=== PATIENT | female | born 1980 | race Caucasian/White ===

== ENCOUNTER 2017-04-29 13:35 | Inpatient (IN) | payer OTHER ==
[~2017-04-29] VITALS: Ht 162.6 cm; Wt 64.7 kg
[2017-04-29 14:11] VITALS: BP 121/80; PULSE 81; RESP 18; TEMP 98.5; O2SAT 100
[2017-04-29] MEDS ORDERED: SENNOSIDES 8.6 MG TAB PO PRN (15:30)
[2017-04-29] MEDS ORDERED: LACTULOSE SYRUP 20 GM/30 ML CUP PO PRN (15:30)
[2017-04-29] MEDS ORDERED: ACETAMINOPHEN 325 MG TAB PO PRN (15:30)
[2017-04-29] MEDS ORDERED: SODIUM CHLORIDE 0.9% FLUSH 10 ML FLUSH IV FLUSH PRN (15:30)
[2017-04-29] MEDS ORDERED: MAGNESIUM HYDROXIDE SUSP 30 ML CUP PO PRN (15:30)
[2017-04-29] MEDS ORDERED: NALOXONE HCL 0.4 MG/ML AMP IV PUSH PRN (15:30)
[2017-04-29] MEDS ORDERED: ONDANSETRON HCL 4 MG/2 ML VIAL IVP PRN (15:30)
[2017-04-29] MEDS ORDERED: BISACODYL 10 MG SUPP RECTAL PRN (15:30)
[2017-04-29] MEDS ORDERED: CLINDAMYCIN INJ 900 MG in SODIUM CHLORIDE 0.9% INJ 100 ML IV SCH ×3 (15:45→17:00)
[2017-04-29 16:00] VITALS: BP 117/76; PULSE 88; RESP 18; TEMP 98.5; O2SAT 100
--- NOTE | 2017-04-29 16:05 | RADRPT ---
EXAM DATE/TIME: 04/29/2017 15:45 [facility] COMPARISON: No previous studies available for comparison. INDICATIONS : Right leg cellulitis. MEDICAL HISTORY : Cellulitis. Substance use. SURGICAL HISTORY : Cholecystectomy. Breast augmentation. ENCOUNTER: Initial ACUITY: 1 day PAIN SCORE: 4/10 LOCATION: Right leg. TECHNIQUE: Venous ultrasound of the leg was performed from the inguinal ligament to the proximal calf. Real-gómez e, color Doppler and spectral tracing, compression and augmentation techniques were used. FINDINGS: There is normal compressibility of the deep venous system from the inguinal region to the proximal ca lf. No echogenic clot is seen in the lumen of the common femoral, femoral, popliteal, and posterior tibial veins. There is a normal response of the venous system to proximal and distal augmentation an d respiration. CONCLUSION: 1. No sonographic evidence for right lower extremity DVT. Gómez Jaramillo MD on April 29, 2017 at 16:03 Board Certified Radiologist. This report was verified electronically.
[2017-04-29] MEDS: ACETAMINOPHEN/HYDROcodone 325 MG/5 MG TAB PO PRN ×2 (16:07→20:39)
[2017-04-29] MEDS: ENOXAPARIN SODIUM 40 MG/0.4 ML SYRINGE SQ SCH (16:18)
[2017-04-29] MEDS: SODIUM CHLOR 0.9% 1000 ML INJ 1,000 ML IV SCH (16:21)
[2017-04-29] MEDS: CLINDAMYCIN INJ 900 MG in SODIUM CHLORIDE 0.9% INJ 100 ML IV SCH (17:38)
[2017-04-29] MEDS ORDERED: POTASSIUM CHLORIDE 10 MEQ CONTROLLED RELEASE TAB PO ONE (17:45)
--- NOTE | 2017-04-29 17:47 | HHI.HP ---
HPI Service [facility] Hospitalists Primary Care Physician No Primary Care Physician Admission Diagnosis Diagnoses: (1) Cellulitis of right lower extremity Diagnosis: Principal (2) Leukocytosis Diagnosis: Principal (3) Hypokalemia Diagnosis: Principal (4) Elevated serum hCG Diagnosis: Principal Chief Complaint: redness, swelling, pain R leg Travel History International Travel<30 Days: No Contact w/Intl Traveler <30 Da: No History of Present Illness Written by Debby Cedeño PA-C acting as scribe for Dr. Mohr on 04/29/17 at 1720. 36-year-old female with no significant medical history presents with complaint of pain, swelling, redness in her right lower extremity. She was initially evaluated at the [facility] ED and admitted to [facility]. The patient states 3 days ago she awoke with soreness over the lateral aspect of her right leg. She thought she had pulled a muscle as she had done a lot of yard work and moving furniture. She states the symptoms then started moving over her right ankle and then into her toes. She denies any injury. States it feels like a "pressure" and states when she sits up she can feel it down her leg. She cannot put pressure on it because of the pain. She admits to intermittent low-grade fevers. She has also had a mild headache intermittently. She vomited a couple of times, yesterday at 4am and felt nauseous again this afternoon. Denies any numbness or tingling. Review of Systems Except as stated in HPI: all other systems reviewed are Neg Past Family Social History Past Medical History No significant medical problems Two vaginal births Past Surgical History Breast augmentation Cholecystectomy Reported Medications Reported Meds & Active Scripts Active No Active Prescriptions or Reported Medications Allergies: Coded Allergies: meperidine (Verified Allergy, Unknown, 04/29/17) Family History Mother and father are healthy. Maternal grandparents with cancer. Social History Occasional cigarette smoking. Denies illicit drug use. Denies heavy alcohol use. Physical Exam Vital Signs Vital Signs Date Time Temp Pulse Resp B/P (MAP) Pulse Ox O2 Delivery O2 Flow Rate FiO2 04/29/17 16:00 98.5 88 18 117/76 (90) 100 04/29/17 14:11 98.5 81 18 121/80 (94) 100 Physical Exam GENERAL: This is a well-nourished, well-developed patient, in no apparent distress. SKIN: Warm light erythema starting over the proximal tibia extending distally over the right lower leg and foot. No obvious wounds. HEAD: Atraumatic. Normocephalic. EYES: No scleral icterus. No injection or drainage. NECK: Trachea midline. CARDIOVASCULAR: Regular rate and rhythm without murmurs, gallops, or rubs. RESPIRATORY: Clear to auscultation. Breath sounds equal bilaterally. No wheezes , rales, or rhonchi. GASTROINTESTINAL: Abdomen soft, non-tender, nondistended. No guarding. MUSCULOSKELETAL: Swelling of the right lower leg and foot. NEUROLOGICAL: Awake and alert. Normal speech. PSYCHIATRIC: Normal mood and affect. Caprini VTE Risk Assessment Caprini VTE Risk Assessment: No/Low Risk (score <= 1) VTE [facility] Contraindication: Severe LE edema (cellulitis RLE) Caprini Risk Assessment Model Point Value = 1 Point Value = 2 Point Value = 3 Point Value = 5 Age 41-60 Minor surgery BMI > 25 kg/m2 Swollen legs Varicose veins or History of unexplained or recurrent spontaneous Oral contraceptives or hormone replacement Sepsis (< 1 month) Serious lung disease, including pneumonia (< 1 month) Abnormal pulmonary function Acute myocardial infarction Congestive heart failure (< 1 month) History of inflammatory bowel disease Medical patient at bed rest Age 61-74 Arthroscopic surgery Major open surgery (> 45 min) Laparoscopic surgery (> 45 min) Malignancy Confined to bed (> 72 hours) Immobilizing plaster cast Central venous access Age >= 75 History of VTE Family history of VTE Factor V Leiden Prothrombin [id number] Lupus anticoagulant Anticardiolipin antibodies Elevated serum homocysteine Heparin-induced thrombocytopenia Other congenital or acquired thrombophilia Stroke (< 1 month) Elective arthroplasty Hip, pelvis, or leg fracture Acute spinal cord injury (< 1 month) Prophylaxis Regimen Total Risk Factor Score Risk Level Prophylaxis Regimen 0-1 Low Early ambulation 2 Moderate Order ONE of the following: *Sequential Compression Device (SCD) *Heparin 5000 units SQ BID 3-4 Higher Order ONE of the following medications: *Heparin 5000 units SQ TID *Enoxaparin/Lovenox 40 mg SQ daily (WT < 150 kg, CrCl > 30 mL/min) *Enoxaparin/Lovenox 30 mg SQ daily (WT < 150 kg, CrCl > 10-29 mL/min) *Enoxaparin/Lovenox 30 mg SQ BID (WT < 150 kg, CrCl > 30 mL/min) AND/OR *Sequential Compression Device (SCD) 5 or more Highest Order ONE of the following medications: *Heparin 5000 units SQ TID (Preferred with Epidurals) *Enoxaparin/Lovenox 40 mg SQ daily (WT < 150 kg, CrCl > 30 mL/min) *Enoxaparin/Lovenox 30 mg SQ daily (WT < 150 kg, CrCl > 10-29 mL/min) *Enoxaparin/Lovenox 30 mg SQ BID (WT < 150 kg, CrCl > 30 mL/min) AND *Sequential Compression Device (SCD) Assessment and Plan Assessment and Plan 36-year-old female with: Cellulitis right lower extremity: Leukocytosis of 19.3. Doppler ultrasound negative for DVT. -Clindamycin IV -Oxycodone for pain -Repeat am CBC Hypokalemia: Mild 3.3 -Replete and monitor Elevated Beta-HCG: HCG 35. Patient states she last had sexual intercourse 3 weeks ago, but just had her normal 5 day period. -Repeat level in the am to confirm DVT prophylaxis: Lovenox. Avoid SCD on RLE. This note was transcribed by lon. I, Dr. Shell Mohr personally performed the history, physical exam, and medical decision making; and confirmed the accuracy of the information in the transcribed note. Authenticated by Dr. Shell Mohr on 04/29/17 at 17:48. Discussed Condition With ED physician, patient. Debby Cedeño Apr 29, 2017 17:47 Shell Mohr MD Apr 29, 2017 17:48
[2017-04-29 20:00] VITALS: BP 104/72; PULSE 83; RESP 20; TEMP 99.3; O2SAT 100
[2017-04-29] MEDS: DOCUSATE SODIUM 50 MG/SENNA 8.6 MG TAB PO SCH (20:39)
[2017-04-29] MEDS: SODIUM CHLORIDE 0.9% FLUSH 10 ML FLUSH IV FLUSH SCH (20:39)
[2017-04-30] VITALS: BP 101/69; PULSE 86; RESP 20; TEMP 100.8; O2SAT 100
[2017-04-30] MEDS: CLINDAMYCIN INJ 900 MG in SODIUM CHLORIDE 0.9% INJ 100 ML IV SCH ×3 (01:24→17:14)
[2017-04-30] MEDS: SODIUM CHLOR 0.9% 1000 ML INJ 1,000 ML IV SCH ×2 (01:24→14:47)
[2017-04-30] MEDS: ACETAMINOPHEN/HYDROcodone 325 MG/5 MG TAB PO PRN (03:14)
[2017-04-30 08:00] VITALS: BP 115/75; PULSE 90; RESP 20; TEMP 99.3; O2SAT 99
[2017-04-30] MEDS: DOCUSATE SODIUM 50 MG/SENNA 8.6 MG TAB PO SCH ×2 (08:31→20:33)
[2017-04-30] MEDS: SODIUM CHLORIDE 0.9% FLUSH 10 ML FLUSH IV FLUSH SCH ×2 (08:31→20:31)
[2017-04-30 09:19] LABS: AUTOMATED NEUTROPHIL # 8.5 TH/MM3 (1.8-7.7); BASOPHIL # 0.1 TH/MM3 (0-0.2); BASOPHIL % 0.6 % (0.0-2.0); EOSINOPHIL # 0.2 TH/MM3 (0-0.4); LYMPH % 9.5 % (9.0-44.0); MEAN CELL VOLUME 89.3 FL (80.0-100.0); MEAN CORPUSCULAR HGB CONC 33.6 % (32.0-36.0); MONO % 6.2 % (0.0-8.0); NEUT % 81.7 % (16.0-70.0); PLATELET COUNT 201 TH/MM3 (150-450); RED BLOOD COUNT 3.25 MIL/MM3 (4.00-5.30); WHITE BLOOD COUNT 10.4 TH/MM3 (4.0-11.0)
[2017-04-30 09:22] LABS: HEMO FLAGS DIFF FINAL
[2017-04-30 09:57] LABS: BICARBONATE 22.1 MEQ/L (21.0-32.0)
[2017-04-30 10:02] LABS: POTASSIUM 3.5 MEQ/L (3.5-5.1)
--- NOTE | 2017-04-30 10:03 | HHI.PR ---
Subjective Remarks Pain swelling and redness of the right lower extremity are not improved. Afebrile. Objective Vitals Vital Signs Date Time Temp Pulse Resp B/P (MAP) Pulse Ox O2 Delivery O2 Flow Rate FiO2 04/30/17 00:00 100.8 86 20 101/69 (80) 100 04/29/17 20:00 99.3 83 20 104/72 (83) 100 04/29/17 16:00 98.5 88 18 117/76 (90) 100 04/29/17 14:11 98.5 81 18 121/80 (94) 100 I/O 04/29/17 04/29/17 04/29/17 04/30/17 04/30/17 04/30/17 07:00 15:00 23:00 07:00 15:00 23:00 Intake Total 569.3 ml 970 ml Output Total 350 ml 280 ml Balance 219.3 ml 690 ml Intake Oral 400 ml 320 ml IV Total 169.3 ml 650 ml Output Urine Total 350 ml 280 ml # Voids 2 # Bowel Movements 1 0 Result Diagram: 04/30/17 0910 04/30/17 0910 Objective Remarks GENERAL: Well-nourished, well-developed female patient. SKIN: Warm and dry. HEAD: Normocephalic. EYES: No scleral icterus. No injection or drainage. NECK: Supple, trachea midline. No JVD or lymphadenopathy. CARDIOVASCULAR: Regular rate and rhythm without murmurs, gallops, or rubs. RESPIRATORY: Breath sounds equal bilaterally. No accessory muscle use. GASTROINTESTINAL: Abdomen soft, non-tender, nondistended. EXTREMITIES: Right lower extremity has patchy erythema and is warm to touch and is edematous 1+, area of dull erythema over her lateral right foot and malleolus. NEUROLOGICAL: Awake, alert, and oriented x 3. Non-focal. A/P Problem List: (1) Cellulitis of right lower extremity ICD Code: L03.115 - Cellulitis of right lower limb (2) Leukocytosis ICD Code: D72.829 - Elevated white blood cell count, unspecified (3) Hypokalemia ICD Code: E87.6 - Hypokalemia (4) Elevated serum hCG ICD Code: E34.9 - Endocrine disorder, unspecified Assessment and Plan -Right lower extremity cellulitis, not improved. Will admit. Continue clindamycin IV, add cefazolin. Unable to use vancomycin due to possible . Hep-Lock IV. -Elevated beta-hCG, repeat pending this morning. Patient informed of possible . Avoid toxins. -Right lower extremity pain due to cellulitis. Treat with Lortab and oxycodone as needed. -Anemia, likely iron deficient. Check iron profile and will start ferrous sulfate if indicated. -DVT prophylaxis with Lovenox subcutaneous. Shell Mohr MD Apr 30, 2017 10:03
[2017-04-30] MEDS: ceFAZolin 2 GM PREMIX 50 ML IV SCH ×2 (11:04→18:09)
[2017-04-30 12:00] VITALS: BP 104/74; PULSE 87; RESP 20; TEMP 99.5; O2SAT 98
[2017-04-30 13:36] LABS: TRANSFERRIN IRON PROFILE 177 MG/DL (200-360)
[2017-04-30] MEDS ORDERED: AMBI10TA PO (14:49)
[2017-04-30 16:00] VITALS: BP 109/69; PULSE 86; RESP 20; TEMP 99.6; O2SAT 100
[2017-04-30] MEDS: ENOXAPARIN SODIUM 40 MG/0.4 ML SYRINGE SQ SCH (17:14)
[2017-04-30 20:00] VITALS: BP 118/80; PULSE 88; RESP 20; TEMP 97.8; O2SAT 100
[2017-04-30] MEDS: FERROUS SULFATE 325 MG (65 MG ELEMENTAL IRON) TAB PO SCH (20:33)
[2017-05-01] VITALS: BP 121/85; PULSE 82; RESP 20; TEMP 99.7; O2SAT 100
[2017-05-01] MEDS: CLINDAMYCIN INJ 900 MG in SODIUM CHLORIDE 0.9% INJ 100 ML IV SCH ×3 (01:00→17:59)
[2017-05-01] MEDS: ceFAZolin 2 GM PREMIX 50 ML IV SCH ×3 (01:30→18:56)
[2017-05-01] MEDS: SODIUM CHLOR 0.9% 1000 ML INJ 1,000 ML IV SCH ×3 (07:26→17:26)
[2017-05-01 08:00] VITALS: BP 124/85; PULSE 93; RESP 18; TEMP 97.7; O2SAT 100
[2017-05-01] MEDS: DOCUSATE SODIUM 50 MG/SENNA 8.6 MG TAB PO SCH ×2 (09:19→20:31)
[2017-05-01] MEDS: FERROUS SULFATE 325 MG (65 MG ELEMENTAL IRON) TAB PO SCH ×2 (09:19→20:31)
[2017-05-01] MEDS: SODIUM CHLORIDE 0.9% FLUSH 10 ML FLUSH IV FLUSH SCH ×2 (09:20→20:31)
[2017-05-01 10:45] LABS: BETA HCG QUANT 37 MIU/ML (0-5)
[2017-05-01 12:00] VITALS: BP 109/75; PULSE 79; RESP 18; TEMP 98.5; O2SAT 99
--- NOTE | 2017-05-01 13:07 | HHI.PR ---
Subjective Remarks Patient states the right lower extremity feels slightly less painful and swollen. Denies fever or chills. Objective Vitals Vital Signs Date Time Temp Pulse Resp B/P (MAP) Pulse Ox O2 Delivery O2 Flow Rate FiO2 05/01/17 12:00 98.5 79 18 109/75 (86) 99 05/01/17 08:00 97.7 93 18 124/85 (98) 100 05/01/17 00:00 99.7 82 20 121/85 (97) 100 04/30/17 20:00 97.8 88 20 118/80 (93) 100 04/30/17 18:14 18 04/30/17 16:00 99.6 86 20 109/69 (82) 100 I/O 04/30/17 04/30/17 04/30/17 05/01/17 05/01/17 05/01/17 06:59 14:59 22:59 06:59 14:59 22:59 Intake Total 970 ml 1156 ml 996 ml 106 ml Output Total 280 ml Balance 690 ml 1156 ml 996 ml 106 ml Intake Oral 320 ml 240 ml IV Total 650 ml 1156 ml 756 ml 106 ml Output Urine Total 280 ml # Bowel Movements 0 Result Diagram: 04/30/17 0910 04/30/17 0910 Objective Remarks GENERAL: Well-nourished, well-developed female patient. SKIN: Warm and dry. HEAD: Normocephalic. EYES: No scleral icterus. No injection or drainage. NECK: Supple, trachea midline. No JVD or lymphadenopathy. CARDIOVASCULAR: Regular rate and rhythm without murmurs, gallops, or rubs. RESPIRATORY: Breath sounds equal bilaterally. No accessory muscle use. GASTROINTESTINAL: Abdomen soft, non-tender, nondistended. EXTREMITIES: Right lower extremity has patchy erythema and is warm to touch and is edematous 1+, area of dull erythema over her lateral right foot and malleolus , edema has slightly receded, edema slightly improved. NEUROLOGICAL: Awake, alert, and oriented x 3. Non-focal. A/P Problem List: (1) Cellulitis of right lower extremity ICD Code: L03.115 - Cellulitis of right lower limb (2) Leukocytosis ICD Code: D72.829 - Elevated white blood cell count, unspecified (3) Hypokalemia ICD Code: E87.6 - Hypokalemia (4) Elevated serum hCG ICD Code: E34.9 - Endocrine disorder, unspecified Assessment and Plan -Right lower extremity cellulitis, slow improvement. Continue clindamycin IV, Cefizox. -Elevated beta-hCG, trend is 35->33->37 - last menstrual period one week ago which was on time per the patient. Will check transvaginal ultrasound to rule out retained products of conception. -Right lower extremity pain due to cellulitis. Treat with Lortab and oxycodone as needed. -Anemia, iron deficient. Continue ferrous sulfate. -DVT prophylaxis with Lovenox subcutaneous. Discharge Planning Discharge home with by mouth antibiotics once cellulitis improved. Shell Mohr MD May 01, 2017 13:06
[2017-05-01] MEDS: ENOXAPARIN SODIUM 40 MG/0.4 ML SYRINGE SQ SCH (15:26)
--- NOTE | 2017-05-01 15:47 | RADRPT ---
EXAM DATE/TIME: 05/01/2017 14:44 [facility] COMPARISON: No previous studies available for comparison. INDICATIONS : . LAB(S): Beta-hC MEDICAL HISTORY : . Cellulitis. Substance use. SURGICAL HISTORY : Cholecystectomy. Breast augmentation. ENCOUNTER: Initial ACUITY: 3 days PAIN SCORE: 8/10 LOCATION: Bilateral pelvis MEASUREMENTS: UTERUS: 7.2 x 4.6 x 4.0 cm ENDOMETRIAL STRIPE: 2 mm RIGHT OVARY: 2.9 x 1.9 x 2.0 cm LEFT OVARY: 1.9 x 1.7 x 1.7 cm FREE FLUID: Yes cul-de-sac FINDINGS: UTERUS: The myometrium has homogeneous echotexture without mass. RIGHT OVARY: Ovary contains no mass or significant cystic lesion. LEFT OVARY: Ovary contains no mass or significant cystic lesion. MISCELLANEOUS: Small amount of free fluid. CONCLUSION: 1. Multiple normal appearing ovarian follicles. 2. Small amount of pelvic free fluid. 3. No intrauterine seen. Thanh Kaur MD on May 01, 2017 at 15:45 Board Certified Radiologist. This report was verified electronically.
[2017-05-01 16:03] VITALS: BP 135/81; PULSE 74; RESP 18; TEMP 98.7; O2SAT 100
[2017-05-01 20:00] VITALS: BP 118/80; PULSE 80; RESP 20; TEMP 98.7; O2SAT 100
[2017-05-01] MEDS ORDERED: ZOLPIDEM TARTRATE 5 MG TAB PO ONE (21:30)
[2017-05-02] VITALS: BP 118/82; PULSE 82; RESP 20; TEMP 98.5; O2SAT 99
[2017-05-02] MEDS: CLINDAMYCIN INJ 900 MG in SODIUM CHLORIDE 0.9% INJ 100 ML IV SCH ×3 (01:00→16:30)
[2017-05-02] MEDS: SODIUM CHLOR 0.9% 1000 ML INJ 1,000 ML IV SCH (01:09)
[2017-05-02] MEDS: ceFAZolin 2 GM PREMIX 50 ML IV SCH ×3 (02:10→18:32)
[2017-05-02 08:00] VITALS: BP 113/85; PULSE 67; RESP 20; TEMP 97.1; O2SAT 100
[2017-05-02] MEDS: SODIUM CHLORIDE 0.9% FLUSH 10 ML FLUSH IV FLUSH SCH ×2 (08:13→20:45)
[2017-05-02] MEDS: FERROUS SULFATE 325 MG (65 MG ELEMENTAL IRON) TAB PO SCH ×2 (08:15→20:45)
[2017-05-02] MEDS: DOCUSATE SODIUM 50 MG/SENNA 8.6 MG TAB PO SCH ×2 (08:15→20:45)
--- NOTE | 2017-05-02 09:32 | HHI.PR ---
Subjective Remarks Patient states that she feels her leg is improving however she still has pain in the ankle. Objective Vitals Vital Signs Date Time Temp Pulse Resp B/P (MAP) Pulse Ox O2 Delivery O2 Flow Rate FiO2 05/02/17 08:00 97.1 67 20 113/85 (94) 100 05/02/17 00:00 98.5 82 20 118/82 (94) 99 05/01/17 20:00 98.7 80 20 118/80 (93) 100 05/01/17 16:03 98.7 74 18 135/81 (99) 100 05/01/17 12:00 98.5 79 18 109/75 (86) 99 I/O 05/01/17 05/01/17 05/01/17 05/02/17 05/02/17 05/02/17 07:00 15:00 23:00 07:00 15:00 23:00 Intake Total 156 ml 660 ml 160 ml 515 ml Balance 156 ml 660 ml 160 ml 515 ml Intake Oral 160 ml IV Total 156 ml 660 ml 515 ml # Voids 6 # Bowel Movements 0 Result Diagram: 04/30/17 0910 04/30/17 0910 Objective Remarks GENERAL: Well-nourished, well-developed female patient. SKIN: Warm and dry. HEAD: Normocephalic. EYES: No scleral icterus. No injection or drainage. NECK: Supple, trachea midline. No JVD or lymphadenopathy. CARDIOVASCULAR: Regular rate and rhythm without murmurs, gallops, or rubs. RESPIRATORY: Breath sounds equal bilaterally. No accessory muscle use. GASTROINTESTINAL: Abdomen soft, non-tender, nondistended. EXTREMITIES: Right lower extremity with trace to 1+ edema, erythema has receded and is now concentrated around the lateral ankle as well as the lateral mid calf. The lateral mid calf area of erythema is about 4 cm and indurated with no fluctuance. Patient has normal range of motion in the knee and right ankle. NEUROLOGICAL: Awake, alert, and oriented x 3. Non-focal. A/P Problem List: (1) Cellulitis of right lower extremity ICD Code: L03.115 - Cellulitis of right lower limb (2) Leukocytosis ICD Code: D72.829 - Elevated white blood cell count, unspecified (3) Hypokalemia ICD Code: E87.6 - Hypokalemia (4) Elevated serum hCG ICD Code: E34.9 - Endocrine disorder, unspecified Assessment and Plan -Right lower extremity cellulitis, slow improvement. Continue clindamycin IV, cefazolin, add vancomycin IV. Area of induration right lateral leg - monitor for possible development of abscess. -Elevated beta-hCG, trend is 35->33->37 - TVUS negative for . -Right lower extremity pain due to cellulitis. Treat with Lortab and oxycodone as needed. -Anemia, iron deficient. Continue ferrous sulfate. -DVT prophylaxis with Lovenox subcutaneous. Discharge Planning Discharge home with by mouth antibiotics once cellulitis improved. Shell Mohr MD May 02, 2017 09:32
[2017-05-02] MEDS: VANCOMYCIN INJ 1,000 MG in SODIUM CHLOR 0.9% 250 ML INJ 250 ML IV SCH ×2 (10:37→21:57)
[2017-05-02] MEDS ORDERED: Vancomycin Consult Pharmacy 1 EA OTHER SCH (11:00)
[2017-05-02 11:35] VITALS: BP 123/80; PULSE 97; RESP 20; TEMP 98.3; O2SAT 100
[2017-05-02] MEDS: ENOXAPARIN SODIUM 40 MG/0.4 ML SYRINGE SQ SCH (15:06)
[2017-05-02 16:00] VITALS: BP 138/95; PULSE 74; RESP 18; TEMP 97.7; O2SAT 100
[2017-05-02 20:24] VITALS: BP 108/75; PULSE 79; RESP 18; TEMP 98.3; O2SAT 100
[2017-05-02] MEDS ORDERED: ZOLPIDEM TARTRATE 5 MG TAB PO ONE (21:30)
[2017-05-03 00:01] VITALS: BP 121/79; PULSE 69; RESP 16; TEMP 98; O2SAT 99
[2017-05-03] MEDS: CLINDAMYCIN INJ 900 MG in SODIUM CHLORIDE 0.9% INJ 100 ML IV SCH ×2 (00:42→09:14)
[2017-05-03] MEDS: ceFAZolin 2 GM PREMIX 50 ML IV SCH ×3 (01:19→17:48)
[2017-05-03 08:00] VITALS: BP 121/77; PULSE 73; RESP 18; TEMP 98.5; O2SAT 100
[2017-05-03] MEDS: FERROUS SULFATE 325 MG (65 MG ELEMENTAL IRON) TAB PO SCH ×2 (09:14→20:18)
[2017-05-03] MEDS: DOCUSATE SODIUM 50 MG/SENNA 8.6 MG TAB PO SCH ×2 (09:14→20:18)
[2017-05-03] MEDS: SODIUM CHLORIDE 0.9% FLUSH 10 ML FLUSH IV FLUSH SCH ×2 (09:14→20:19)
[2017-05-03 10:30] VITALS: BP 106/58; PULSE 58
--- NOTE | 2017-05-03 10:37 | HHI.PR ---
Subjective Remarks Feels leg is much less swollen and less painful. Area of pain localized to several centimeter area on right lateral mid calf. Having trouble sleeping. Objective Vitals Vital Signs Date Time Temp Pulse Resp B/P (MAP) Pulse Ox O2 Delivery O2 Flow Rate FiO2 05/03/17 10:30 58 106/58 (74) 05/03/17 08:00 98.5 73 18 121/77 (92) 100 05/03/17 00:01 98.0 69 16 121/79 (93) 99 05/02/17 20:24 98.3 79 18 108/75 (86) 100 05/02/17 16:00 97.7 74 18 138/95 (109) 100 05/02/17 11:35 98.3 97 20 123/80 (94) 100 I/O 05/02/17 05/02/17 05/02/17 05/03/17 05/03/17 05/03/17 06:59 14:59 22:59 06:59 14:59 22:59 Intake Total 160 ml 1821 ml 406 ml 150 ml Balance 160 ml 1821 ml 406 ml 150 ml Intake Oral 160 ml 900 ml IV Total 921 ml 406 ml 150 ml # Voids 6 4 4 # Bowel Movements 0 1 Result Diagram: 04/30/1710 04/30/1710 Objective Remarks GENERAL: Well-nourished, well-developed female patient. SKIN: Warm and dry. HEAD: Normocephalic. EYES: No scleral icterus. No injection or drainage. NECK: Supple, trachea midline. No JVD or lymphadenopathy. CARDIOVASCULAR: Regular rate and rhythm without murmurs, gallops, or rubs. RESPIRATORY: Breath sounds equal bilaterally. No accessory muscle use. GASTROINTESTINAL: Abdomen soft, non-tender, nondistended. EXTREMITIES: Right lower extremity with trace edema (improved), erythema has receded and is now concentrated around the lateral ankle to a 3 x 3 cm area which is indurated with no fluctance. Patient has normal range of motion in the knee and right ankle. NEUROLOGICAL: Awake, alert, and oriented x 3. Non-focal. A/P Problem List: (1) Cellulitis of right lower extremity ICD Code: L03.115 - Cellulitis of right lower limb (2) Leukocytosis ICD Code: D72.829 - Elevated white blood cell count, unspecified (3) Hypokalemia ICD Code: E87.6 - Hypokalemia (4) Elevated serum hCG ICD Code: E34.9 - Endocrine disorder, unspecified Assessment and Plan -Right lower extremity cellulitis, slow improvement, but improved a lot overnight after adding vancomycin. Cont cefazolin, vancomycin IV. DC clindamycin. Area of induration right lateral leg - monitor for possible development of abscess, currently no fluctuance. -Elevated beta-hCG, trend is 35->33->37 - TVUS negative for . -Right lower extremity pain due to cellulitis. Treat with Lortab and oxycodone as needed. -Anemia, iron deficient. Continue ferrous sulfate. -DVT prophylaxis with Lovenox subcutaneous. Discharge Planning Discharge home with by mouth antibiotics (dual therapy) possibly tomorrow if continued improvement. Shell Mohr MD May 03, 2017 10:37
[2017-05-03] MEDS: VANCOMYCIN INJ 1,000 MG in SODIUM CHLOR 0.9% 250 ML INJ 250 ML IV SCH ×2 (11:26→22:34)
[2017-05-03 12:05] VITALS: BP 124/84; PULSE 81; RESP 16; TEMP 98.3; O2SAT 100
[2017-05-03] MEDS: ENOXAPARIN SODIUM 40 MG/0.4 ML SYRINGE SQ SCH (15:11)
[2017-05-03 16:00] VITALS: BP 111/87; PULSE 79; RESP 16; TEMP 99; O2SAT 99
[2017-05-03 20:51] VITALS: BP 126/84; PULSE 80; RESP 20; TEMP 98.4; O2SAT 100
[2017-05-03] MEDS: ZOLPIDEM TARTRATE 5 MG TAB PO PRN (22:33)
[2017-05-03] MEDS ORDERED: VANCOMYCIN TROUGH ONE (22:45)
[2017-05-04 00:16] VITALS: BP 128/85; PULSE 73; RESP 20; TEMP 98.2; O2SAT 99
[2017-05-04] MEDS: ceFAZolin 2 GM PREMIX 50 ML IV SCH ×3 (02:00→18:44)
[2017-05-04 08:00] VITALS: BP_SYST 133; BP_DIAS 66; BP_DIAS 87; PULSE 71; RESP 18; TEMP 98.1; O2SAT 99
[2017-05-04] MEDS: SODIUM CHLORIDE 0.9% FLUSH 10 ML FLUSH IV FLUSH SCH ×2 (08:25→20:50)
[2017-05-04] MEDS: FERROUS SULFATE 325 MG (65 MG ELEMENTAL IRON) TAB PO SCH ×3 (08:25→20:49)
[2017-05-04] MEDS: DOCUSATE SODIUM 50 MG/SENNA 8.6 MG TAB PO SCH ×2 (08:25→20:50)
[2017-05-04] MEDS: ACETAMINOPHEN/HYDROcodone 325 MG/5 MG TAB PO PRN ×2 (11:14→20:50)
[2017-05-04 12:00] VITALS: BP 115/82; PULSE 72; RESP 18; TEMP 98.1; O2SAT 99
--- NOTE | 2017-05-04 13:15 | HHI.PR ---
Subjective Remarks Feels nauseated today. Still has pain and erythema over right lateral LE. Objective Vitals Vital Signs Date Time Temp Pulse Resp B/P (MAP) Pulse Ox O2 Delivery O2 Flow Rate FiO2 05/04/17 08:00 98.1 71 18 133/66 (88) 99 05/04/17 08:00 98.1 71 18 133/87 (102) 99 05/04/17 00:16 98.2 73 20 128/85 (99) 99 05/03/17 20:51 98.4 80 20 126/84 (98) 100 05/03/17 16:00 99.0 79 16 111/87 (95) 99 I/O 05/03/17 05/03/17 05/03/17 05/04/17 05/04/17 05/04/17 06:59 14:59 22:59 06:59 14:59 22:59 Intake Total 150 ml 408 ml 530 ml 300 ml Output Total 0 ml Balance 150 ml 408 ml 530 ml 300 ml Intake Oral 480 ml IV Total 150 ml 408 ml 50 ml 300 ml Output Urine Total 0 ml # Voids 4 8 1 # Bowel Movements 0 Result Diagram: 04/30/17 0910 04/30/17 0910 Objective Remarks GENERAL: Well-nourished, well-developed female patient. SKIN: Warm and dry. HEAD: Normocephalic. EYES: No scleral icterus. No injection or drainage. NECK: Supple, trachea midline. No JVD or lymphadenopathy. CARDIOVASCULAR: Regular rate and rhythm without murmurs, gallops, or rubs. RESPIRATORY: Breath sounds equal bilaterally. No accessory muscle use. GASTROINTESTINAL: Abdomen soft, non-tender, nondistended. EXTREMITIES: Right lower extremity no longer edematous, erythema has receded and is now concentrated around the lateral mid-calf/leg to a 3 x 3 cm area which is indurated with minimal fluctance. Patient has normal range of motion in the knee and right ankle. NEUROLOGICAL: Awake, alert, and oriented x 3. Non-focal. A/P Problem List: (1) Cellulitis of right lower extremity ICD Code: L03.115 - Cellulitis of right lower limb (2) Leukocytosis ICD Code: D72.829 - Elevated white blood cell count, unspecified (3) Hypokalemia ICD Code: E87.6 - Hypokalemia (4) Elevated serum hCG ICD Code: E34.9 - Endocrine disorder, unspecified Assessment and Plan -Right lower extremity cellulitis, slow improvement, but improved a lo after adding vancomycin. Cont cefazolin, vancomycin IV. DC Area of induration right lateral leg - monitor for possible development of abscess, has minimal fluctuance today, will check soft tissue ultrasound for drainable abscess. -Elevated beta-hCG, trend is 35->33->37 - TVUS negative for . -Right lower extremity pain due to cellulitis. Treat with Lortab and oxycodone as needed. -Anemia, iron deficient. Continue ferrous sulfate. -DVT prophylaxis with Lovenox subcutaneous. Discharge Planning Discharge home with by mouth antibiotics (dual therapy) when improved, possibly tomorrow, if soft tissue u/s negative for abscess. Shell Mohr MD May 04, 2017 13:15
[2017-05-04 16:00] VITALS: BP_SYST 133; BP_SYST 137; BP_DIAS 66; BP_DIAS 85; PULSE 71; PULSE 81; RESP 18; TEMP 97.7; TEMP 98.1; O2SAT 99
[2017-05-04] MEDS: ENOXAPARIN SODIUM 40 MG/0.4 ML SYRINGE SQ SCH (16:25)
--- NOTE | 2017-05-04 16:51 | RADRPT ---
EXAM DATE/TIME: 05/04/2017 15:40 [facility] COMPARISON: No previous studies available for comparison. INDICATIONS : Right leg fluid collection. MEDICAL HISTORY : . SURGICAL HISTORY : Cholecystectomy. Breast augmentation. ENCOUNTER: Initial ACUITY: 1 day PAIN SCORE: 5/10 LOCATION: Right leg. AREA EVALUATED: Right lateral lower leg. FINDINGS: There is marked subcutaneous edema and skin thickening in the right lateral lower leg without evidenc e of mass or focal fluid collection. There are edematous changes seen. CONCLUSION: No evidence for fluid collection. Significant edema is seen within the subcutaneous tissues in the ar ea of clinical concern. Niall Cantrell MD on May 04, 2017 at 16:49 Board Certified Radiologist. This report was verified electronically.
[2017-05-04 20:16] VITALS: BP 111/80; PULSE 77; RESP 20; TEMP 97.4; O2SAT 100
[2017-05-04] MEDS: ZOLPIDEM TARTRATE 5 MG TAB PO PRN (20:50)
[2017-05-05 00:16] VITALS: BP 118/85; PULSE 80; RESP 20; TEMP 96.2; O2SAT 99
[2017-05-05] MEDS: ceFAZolin 2 GM PREMIX 50 ML IV SCH ×2 (01:10→11:32)
[2017-05-05] MEDS: ACETAMINOPHEN/HYDROcodone 325 MG/5 MG TAB PO PRN (01:10)
[2017-05-05] MEDS: DOCUSATE SODIUM 50 MG/SENNA 8.6 MG TAB PO SCH (09:00)
[2017-05-05] MEDS: SODIUM CHLORIDE 0.9% FLUSH 10 ML FLUSH IV FLUSH SCH (09:00)
[2017-05-05] MEDS: FERROUS SULFATE 325 MG (65 MG ELEMENTAL IRON) TAB PO SCH (09:15)
[2017-05-05 09:19] VITALS: BP 107/74; PULSE 66; RESP 19; TEMP 97.2; O2SAT 98
[2017-05-05] MEDS ORDERED: LACTTAB8 PO (11:32)
[2017-05-05] MEDS ORDERED: CLIN1CAP6 PO (11:32)
[2017-05-05] MEDS ORDERED: PERC5TAB12 PO (11:32)
[2017-05-05] MEDS ORDERED: CEPH-460 PO (11:32)
[2017-05-05] MEDS ORDERED: AMBI10TA PO (11:32)
[2017-05-05 12:00] VITALS: BP 121/85; PULSE 77; RESP 18; TEMP 98; O2SAT 100
[2017-05-05 12:48] LABS: BICARBONATE 27.1 MEQ/L (21.0-32.0)
[2017-05-05 13:29] LABS: BETA HCG QUANT 83 MIU/ML (0-5)
--- NOTE | 2017-05-05 13:59 | HHI.DS ---
Discharge Summary Admission Date Apr 30, 2017 at 10:04 Discharge Date: May 05, 2017 Admitting Diagnosis (1) Cellulitis of right lower extremity ICD Code: L03.115 - Cellulitis of right lower limb Diagnosis: Principal (2) Leukocytosis ICD Code: D72.829 - Elevated white blood cell count, unspecified Diagnosis: Principal (3) Hypokalemia ICD Code: E87.6 - Hypokalemia Diagnosis: Principal (4) Elevated serum hCG ICD Code: E34.9 - Endocrine disorder, unspecified Diagnosis: Principal Procedures None Brief History - From Admission Written by Debby Cedeño PA-C acting as scribe for Dr. Mohr on 04/29/17 at 1720. 36-year-old female with no significant medical history presents with complaint of pain, swelling, redness in her right lower extremity. She was initially evaluated at the [facility] ED and admitted to [facility]. The patient states 3 days ago she awoke with soreness over the lateral aspect of her right leg. She thought she had pulled a muscle as she had done a lot of yard work and moving furniture. She states the symptoms then started moving over her right ankle and then into her toes. She denies any injury. States it feels like a "pressure" and states when she sits up she can feel it down her leg. She cannot put pressure on it because of the pain. She admits to intermittent low-grade fevers. She has also had a mild headache intermittently. She vomited a couple of times, yesterday at 4am and felt nauseous again this afternoon. Denies any numbness or tingling. CBC/BMP: 05/05/17 1210 Significant Findings Laboratory Tests Test 05/03/17 23:52 05/05/17 12:10 Vancomycin Level Trough 29.6 MCG/ML (5.0-10.0) Human Chorionic Gonadotropin, Quant 83 MIU/ML (0-5) PE at Discharge GENERAL: Well-nourished, well-developed female patient. SKIN: Warm and dry. HEAD: Normocephalic. EYES: No scleral icterus. No injection or drainage. NECK: Supple, trachea midline. No JVD or lymphadenopathy. CARDIOVASCULAR: Regular rate and rhythm without murmurs, gallops, or rubs. RESPIRATORY: Breath sounds equal bilaterally. No accessory muscle use. GASTROINTESTINAL: Abdomen soft, non-tender, nondistended. EXTREMITIES: Right lower extremity no longer edematous, erythema has receded and is now concentrated around the lateral mid-calf/leg to a 3 x 3 cm area which is indurated with minimal fluctance. Patient has normal range of motion in the knee and right ankle. NEUROLOGICAL: Awake, alert, and oriented x 3. Non-focal. Hospital Course Mrs. Gerard is a 36 year old female. She came into the hospital secondary to right lower extremity cellulitis. Abscess was suspected that was not found. She had severe swelling of the right lower extremity. With antibiotics and through time she has had improvement. was noted to be elevated at 35, at time of admit. 24 hours after this number was at 37. A transabdominal ultrasound did not show any evidence of . A delayed beta hCG at day of discharge showed a value of 83, increasing suspicion for active . The infection is under control responding well to current treatments. Selection of discharge medications are provided with respect to possible . She is recommended to establish as an outpatient with [facility] provider. Patient is transitioned to clindamycin and Keflex duration of her treatment which will be 7 more days. She will also be on probiotics and is provided with short treatment is for related pain and insomnia. Medically stable for discharge home today. Pt Condition on Discharge: Stable Discharge Disposition: Discharge Home Discharge Time: <= 30 minutes Discharge Instructions DIET: Follow Instructions for: As Tolerated, No Restrictions Activities you can perform: Regular-No Restrictions Follow up Referrals: PCP Follow-up - 2 Weeks New Medications: Cephalexin (Keflex) 500 Mg Cap 500 MG PO Q8H for Infection, #21 CAP 0 Refills Clindamycin (Clindamycin) 300 Mg Cap 300 MG PO TID for Infection, #21 CAP 0 Refills Lactobacillus Acidophilus (Lactobacillus Acidophilus) 1 Billion Cell Tab 1 TAB PO TIDAC for Nutritional Supplement, #30 TAB 0 Refills Oxycodone-Acetaminophen (Percocet) 5-325 mg Tab 1 TAB PO Q6H PRN for PAIN, #25 TAB 0 Refills Continued Medications: Zolpidem (Ambien) 10 Mg Tab 10 MG PO HS PRN for INSOMNIA, #14 TAB 0 Refills (This prescription has been renewed) Zaid Mejía MD May 05, 2017 13:59
== END 2017-05-05 13:50 | disposition home or self-care (01) | DRG 603 ==
LOC: PHEDDLT 13:35 → PH3B 13:45 → OBSVTOIN 04-30 10:04
PROVIDERS: ADMIT Hospitalist; ATTEND Hospitalist
DX: L03.115 Cellulitis of right lower limb (principal); E34.9 Endocrine disorder, unspecified; E87.6 Hypokalemia; Z72.0 Tobacco use; D50.9 Iron deficiency anemia, unspecified
CPT/HCPCS: 76801; 76817; 76882; 76937; 80048; 80202; 83540; 83550; 84702; 85025; 93971; 96365; 96375; J0690; J1650; J2405; J3370; J7030; J7050